=== PATIENT | male | born 1980 | race Caucasian/White ===

== ENCOUNTER 2023-01-24 20:30 | Emergency (ER) | payer SELFPAY ==
[2023-01-24 20:33] VITALS: BP 148/90; PULSE 89; RESP 14; TEMP 36.4; O2SAT 98
--- NOTE | 2023-01-24 21:24 | ED.GENADULT ---
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 denies any dysuria. Says actually when he voided it actually feels denies any back pain. Pain radiates to his suprapubic area. Denies any other symptoms. He has been eating drinking voiding stooling well without fever cough runny nose sore throat bleeding or bruising lumps or bumps or any other complaints. history of opioid abuse on Suboxone Related Data Home Medications Medication Instructions Recorded Confirmed buprenorphine 8 mg-naloxone 2 mg 1 tablet sublingual DIRECTED 01/24/23 01/24/23 sublingual tablet Allergies Allergy/AdvReac Type Severity Reaction Status Date / Time No Known Allergies Allergy Verified 01/24/23 20:45 [facility] Social History Social History Smoking status: Current every day smoker Exam Narrative: White male moderate distress antalgic gait. Lungs are clear heart is regular rate rhythm abdomen is soft nontender no hepatosplenomegaly or masses right testicle is tender cremaster reflex is negative bilaterally the right tender testicle looks to be in a normal lie there is more tenderness to the epididymis. No inguinal hernias bilaterally left testicle is normal. Penis looks normal. Course Vital Signs Vital signs: Vital Signs Temperature 36.4 C 01/24/23 20:33 Pulse Rate 89 01/24/23 20:33 Respiratory Rate 14 01/24/23 20:33 Blood Pressure 148/90 H 01/24/23 20:33 Pulse Oximetry 98 01/24/23 20:33 Oxygen Delivery Room Air 01/24/23 20:33 Temperature 36.4 C 01/24/23 20:33 Pulse Rate 89 01/24/23 20:33 Respiratory Rate 14 01/24/23 20:33 Blood Pressure 148/90 H 01/24/23 20:33 Pulse Oximetry 98 01/24/23 20:33 Oxygen Delivery Room Air 01/24/23 20:33 Transfer Transfered to: [place] Transfer rationale: no ultrasound available here so must go to other facility to rule torsion of the testes Accepting physician: accepted by physician administrative assistant coordinator dAam Coronel Transfer comments: via ground ambulance Medical Decision Making MDM Narrative Medical decision making narrative: IV was started he is given Toradol 30 mg IV. [facility] was called spoke with Adam Coronel physician administrative assistant coordinator who accepted patient in transfer. To go by ground ambulance Differential Diagnosis Differential Diagnosis: torsed testicle epididymitis orchitis hernia kidney stone urinary tract infection pyelonephritis Medical Records Medical records reviewed: Yes I reviewed the external patient's medical records. Vital Signs Vital Signs: Vital Signs Temperature 36.4 C 01/24/23 20:33 Pulse Rate 89 01/24/23 20:33 Respiratory Rate 14 01/24/23 20:33 Blood Pressure 148/90 H 01/24/23 20:33 Pulse Oximetry 98 01/24/23 20:33 Oxygen Delivery Room Air 01/24/23 20:33 Temperature 36.4 C 01/24/23 20:33 Pulse Rate 89 01/24/23 20:33 Respiratory Rate 14 01/24/23 20:33 Blood Pressure 148/90 H 01/24/23 20:33 Pulse Oximetry 98 01/24/23 20:33 Oxygen Delivery Room Air 01/24/23 20:33 Discharge Plan Discharge Clinical Impression: Acute orchitis Patient Disposition: Acute Care Hospital Condition: Stable Additional Instructions: transferred via ground ambulance to [facility] in [facility] Prescriptions: No Action buprenorphine-naloxone 8-2 mg tablet, sublingual 1 tablet SUBLINGUAL DIRECTED Follow-up/Referrals: UNKNOWN,DOCTOR [Primary Care Provider] - Time of Disposition: 21:50
[2023-01-24] MEDS: SODIUM CHLORIDE 0.9% IV 1,000 ML 150 ML IV CONT (21:41)
[2023-01-24] MEDS: KETOROLAC 30 MG/ML VIAL (*BKC) IV PUSH (21:41)
--- NOTE | 2023-01-24 21:59 | PC.NURSE ---
After giving RN to RN report and starting transfer process, pt states that he wants to go via POV. Updated ERP and accepting facility. Jasson requests pt leave [facility] to receive ultrasound. RN relays information to pt who states he will make it in time.
== END 2023-01-24 22:12 | disposition short-term general hospital (02) ==
PROVIDERS: Emergency Provider Emergency Medicine
DX: N45.2 Orchitis (principal); F17.200 Nicotine dependence, unspecified, uncomplicated
CPT/HCPCS: 96374; 99284; J1885; J7030

== ENCOUNTER 2023-01-24 22:42 | Emergency (ER) | payer SELFPAY ==
--- NOTE | ~2023-01-24 | US_ITS ---
EXAMINATION: US scrotum doppler DATE: 01/24/2023 23:43 INDICATION: Right testicular pain TECHNIQUE: Testicular sonogram utilizing grayscale and Doppler COMPARISON: None. FINDINGS: The right testis measures 4.8 x 2.4 x 2.9 cm. The left testis measures 4.6 x 2.7 x 3.1 cm. Symmetric normal grayscale appearance to both testes. There is normal vascular flow to both testes. The right e pididymis is normal with normal vascular flow. 3 mm anechoic cyst at the head of the left epididymis. The left epididymis is otherwise normal with normal vascular flow. There is no varicocele or hydroce le. IMPRESSION: 1. 3 mm left epididymal head cyst. Otherwise unremarkable scrotal ultrasound. Reviewed, dictated and finalized at location [facility]. T [facility]UNDR[facility] ATTEND[facility]
--- NOTE | ~2023-01-24 | CT_ITS ---
EXAMINATION: CT abdomen pelvis wo con DATE: 01/25/2023 05:19 INDICATION: Renal stones presenting with right testicular pain and swelling which improves with urina tion. TECHNIQUE: Computed tomography (CT) of the abdomen and pelvis was performed without intravenous contr ast. Automated exposure control and iterative reconstruction technique were employed. The dose-length product was 783.95 mGy-cm. COMPARISON: None FINDINGS: Lung bases are clear. Heart size is normal. No pericardial or pleural effusion. Liver, gallbladder, s pleen, pancreas and bilateral adrenal glands are normal. Kidneys and ureters are normal with no uroli thiasis, hydroureteronephrosis or perinephric/ureteral stranding. Bladder is normal. Postoperative ch fernando of prior appendectomy with suture line along the tip of the cecum. Bowels are otherwise unremark able. Mild asymmetric enlargement and decreased attenuation of the right seminal vesicle relative to the left which could be normal but raises possibility of seminal vesiculitis. No free intraperitoneal gas or fluid. No pathologically enlarged abdominal or pelvic lymphadenopathy. Mild to moderate lumba r spondylosis with 8 mm retrolisthesis L5 on S1. IMPRESSION: 1. No urolithiasis. 2. Asymmetric enlargement and decreased attenuation of the right seminal vesicle which could be sapna l but given the provided clinical history suggests possibility of edema in the setting of a seminal v esiculitis. Reviewed, dictated and finalized at location [facility]. [facility] IMPRESSION: 1. No urolithiasis. 2. Asymmetric enlargement and decreased attenuation of the right seminal vesicl e which could be normal but given the provided clinical history suggests possib ility of edema in the setting of a seminal vesiculitis.
[2023-01-24 22:44] VITALS: BP 131/83; PULSE 83; RESP 16; TEMP 36.2; O2SAT 100
[2023-01-25] VITALS (10 sets, daily range): BP systolic 130–145; BP diastolic 68–90; PULSE 72–88; RESP 16–18; TEMP 36.5; O2SAT 96–100
[2023-01-25] MEDS: ACETAMINOPHEN 500 MG TABLET 1000 MG PO (05:13)
--- NOTE | 2023-01-25 05:22 | ED.GENADULT ---
HPI - General Adult General Chief complaint: Urogenital-Male Stated complaint: possible testicular torsion Time Seen by Provider: 01/25/23 03:15 History of Present Illness HPI narrative: This is a 43-year-old male sent from [facility] for possible torsion. Patient states that he has been having flank abdominal and testicle pain for the last 3 days. Started out in his flanks and then radiated to his lower abdomen and groin. He states that the pain comes and goes. He has never had pain like this before. It is relieved by urination. There are no exacerbating factors. He did note that he had very dark urine but he denies hematuria. No history of kidney stones. Patient is sexually active with 1 partner and has no concern for STDs. Patient denies fever, chills, nausea vomiting diarrhea, chest pain difficulty breathing. Related Data Home Medications Medication Instructions Recorded Confirmed buprenorphine 8 mg-naloxone 2 mg 1 tablet sublingual DIRECTED 01/24/23 01/24/23 sublingual tablet Allergies Allergy/AdvReac Type Severity Reaction Status Date / Time No Known Allergies Allergy Verified 01/24/23 20:45 [facility] Social History Social History Smoking status: Current every day smoker Exam Narrative: APPEARANCE: No apparent distress. Head: atraumatic. EYES: EOMI, NOSE: Atraumatic NECK: Trachea midline RESPIRATORY: No increased rate of breathing CARDIOVASCULAR: RRR, ABDOMINAL: Non-distended, soft no guarding or rebound, no CVA tenderness, Genital exam: tenderness to palpation on the posterior aspect of the right testicle. Normal lie. No overlying skin changes or swelling. MUSCULOSKELETAl: No obvious deformities NEURO: Alert. Moving 4/4 extremities SKIN:: Warm, dry. Normal color PSYCHIATRIC: Normal affect Course Vital Signs Vital signs: Vital Signs Temperature 97.2 F L 01/24/23 22:44 Pulse Rate 83 01/24/23 22:44 Respiratory Rate 16 01/24/23 22:44 Blood Pressure 131/83 01/24/23 22:44 Pulse Oximetry 100 01/24/23 22:44 Oxygen Delivery Room Air 01/24/23 22:44 Temperature 97.2 F L 01/24/23 22:44 Pulse Rate 88 01/25/23 01:25 Respiratory Rate 16 01/25/23 01:25 Blood Pressure 145/75 H 01/25/23 03:16 Pulse Oximetry 96 01/25/23 03:37 Oxygen Delivery Room Air 01/24/23 22:44 Medical Decision Making [facility] Narrative Medical decision making narrative: -Presentation: 43-year-old male presenting with flank pain and testicle pain. Testicular ultrasound has been ordered. Given his flank pain a CT abdomen pelvis is ordered to evaluate for kidney stone. Basic lab work and urinalysis will be obtained. Patient denies any chance of STDs and has declined testing. 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 Urinalysis was not indicative infection. Lab work was within normal limits. CT abdomen pelvis was interpreted as: 1. No urolithiasis. 2. Asymmetric enlargement and decreased attenuation of the right seminal vesicle which could be normal but given the provided clinical history suggests possibility of edema in the setting of a seminal vesiculitis. Dx tests considered but not ordered: None -Procedures: none -Interventions: ceftriaxone 500 mg IV, 500 mg levofloxacin PO -Shared decision making / Disposition: Given the CT findings I re-interviewed the patient and the patient admits to severe pain on ejaculation. Case was discussed with Dr. Tubbs (Urology.) He agrees with ceftriaxone and a 10 day course of levofloxacin. Rec
[2023-01-25 05:55] LABS: Basophils Percent Auto 0.5 % (0.2-1.2); Eosinophils Absolute Auto 0.2 K/mm3 (0-0.3); Eosinophils Percent Auto 4.2 % (0-4.4); Hematocrit 40.4 % (42.0-52.0); Hemoglobin 13.2 g/dL (14.0-18.0); Immature Granulocyte Absolute 0.01 K/mm3 (0.00-0.031); Immature Granulocyte Percent A 0.2 % (0-0.5); Lymphocytes Absolute Auto 2.16 K/mm3 (0.9-3.2); Lymphocytes Percent Auto 50.3 % (18.3-44.2); Mean Corpuscular HGB Conc 32.7 g/dl (32-36); Mean Corpuscular Volume 85.8 fl (80-100); Mean Platelet Volume 9.1 fl (7.4-10.4); Monocytes Absolute Auto 0.4 K/mm3 (0.1-0.6); Monocytes Percent Auto 8.2 % (2.6-8.5); Neutrophils Absolute Auto 1.6 K/mm3 (1.3-6.7); Neutrophils Percent Auto 36.6 % (45.5-73.1); Platelet Count Result 242 k/mm3 (150-375); Red Blood Count 4.71 M/mm3 (4.6-6.20); Red Cell Distribution Width 15.1 % (11.5-14.5); White Blood Count 4.3 K/mm3 (4.5-10.0)
[2023-01-25 06:03] LABS: Appearance Urine Turbid (Clear); Bacteria Urine None Seen /hpf; Bilirubin Urine Negative (Negative); Blood Urine Negative (Negative); Color Urine Dark Yellow (Yellow); Glucose Urine UA Negative (Negative); Ketones Urine Negative (Negative); Leukocyte Esterase Ur Negative LEU/UL (Negative); Nitrate Urine Negative (Negative); Non Pathogenic Casts 0-2; Protein Urine Trace mg/dL (Negative); RBC Urine 0-2 /hpf (0-2); Specific Grav Ur 1.027 (1.001-1.035); Squamous Epithelial Cell Urine None seen /hpf (Few); WBC Urine 0-5 /hpf; pH Urine 7.5 (5.0-9.0)
[2023-01-25 06:05] LABS: Anion Gap 5 mmol/L (8-16); Blood Urea Nitrogen 12 mg/dL (9-20); Carbon Dioxide 29 mmol/L (22-30); Chloride 109 mmol/L (98-107); Estimated CRCL calculation 94 ml/min; Estimated Glomerular Filt Rate > 60; Glucose 87 mg/dL (65-110); Potassium 4.1 mmol/L (3.4-5.0); Sodium 143 mmol/L (137-145)
[2023-01-25 06:15] LABS: Add Urine Microscopic? YES
[2023-01-25] MEDS: cefTRIAXone 1 GM VIAL 0.5 GM XX (06:58)
[2023-01-25] MEDS: levoFLOXacin 500 MG TABLET PO (06:58)
[2023-01-25] MEDS: LIDOCAINE HCL 1% LOCAL INJ 20 ML VIAL (06:59)
== END 2023-01-25 07:44 | disposition home or self-care (01) ==
PROVIDERS: Physician Assistant; Emergency Provider Emergency Medicine
DX: N45.1 Epididymitis (principal); F17.200 Nicotine dependence, unspecified, uncomplicated
CPT/HCPCS: 36415; 74176; 76870; 80048; 81001; 85025; 93976; 96372; 99284; A9270; J0696

== ENCOUNTER 2023-07-11 18:04 | Emergency (ER) | payer SELFPAY ==
[2023-07-11 18:04] VITALS: BP 135/82; PULSE 84; RESP 18; TEMP 37.1; O2SAT 97
--- NOTE | 2023-07-11 18:15 | ED.GENADULT ---
HPI - General Adult General Chief complaint: Skin/Abscess/Foreign Body Stated complaint: rash Time Seen by Provider: 07/11/23 18:14 History of Present Illness HPI narrative: 43yo man presents with recurring itchy red bumps all over the arms and legs. Last onset one week ago, responds decently well to topical benadryl cream. No fevers, chills, bruising. No nausea, dyspnea, wheezing, or skin swelling. Pt has been scratching and saw some black material come out, so wanted to be sure it wasn't a parasite. Related Data Home Medications Medication Instructions Recorded Confirmed buprenorphine 8 mg-naloxone 2 mg 1 tablet sublingual DIRECTED 01/24/23 07/11/23 sublingual tablet Allergies Allergy/AdvReac Type Severity Reaction Status Date / Time No Known Allergies Allergy Verified 07/11/23 18:14 Review of Systems Review of Systems: All systems reviewed & are unremarkable except as noted in HPI and below Constitutional: Constitutional: Denies fever(s) ENT: Denies dysphagia Cardiovascular: Cardiovascular: Denies chest pain Respiratory: Respiratory: Denies dyspnea PMFSH Social History Social History Smoking status: Current every day smoker Exam Const: General: healthy appearing Nutritional Appearance: well nourished Eyes: Conjunctivae: conjunctivae normal Resp: Effort & Inspection: normal respiratory effort and not labored Cardio: Rate: regular rate GI: Inspection: non-distended Skin: General skin exam: normal color, no jaundice and no pallor Other: Sparsely scattered excoriated red papules, non-pustular, non-umbilicated, across the arms and legs. Head and neck are spared. No macules. Extrem: General: no clubbing, cyanosis or edema Medical Decision Making MDM Narrative Medical decision making narrative: evenly distributed red papules DDx likely acute immunologic urticaria or papular urticaria related to exposure to plant matter, insects, or other environmental allergen. Clinical exam not consistent with herpesvirus, contact dermatitis, direct insect bites (flea, scabies, tick, or other arthropod), vasculitis, petechiae. Will trial anti-inflammatories and anti-histamines. Discharge Plan Discharge Clinical Impression: Papular urticaria Patient Disposition: Home, Self-Care Condition: Stable Additional Instructions: Your rash appears to be an inflammatory reaction, given the symmetric and even distribution, which means it is not a parasite or insect. It also does not look like any vasculitis or auto-immune disorder. It appears to be a limited reaction and only requires mild treatment. Take the prescribed medication as directed for the full course to get relief from your symptoms. Follow-up with your regular doctor if symptoms are not improving. Prescriptions: New dexamethasone 4 mg tablet 4 mg PO BID 5 Days Qty: 10 0RF hydroxyzine HCl 25 mg tablet 25 mg PO Q6H PRN (Reason: itching) Qty: 20 0RF No Action buprenorphine-naloxone 8-2 mg tablet, sublingual 1 tablet SUBLINGUAL DIRECTED Follow-up/Referrals: UNKNOWN,DOCTOR [Primary Care Provider] - Time of Disposition: 18:28
== END 2023-07-11 18:30 | disposition home or self-care (01) ==
PROVIDERS: Emergency Provider Emergency Medicine
DX: L50.8 Other urticaria (principal); F17.200 Nicotine dependence, unspecified, uncomplicated
CPT/HCPCS: 99283

== ENCOUNTER 2024-07-22 12:03 | Emergency (ER) | payer SELFPAY ==
--- NOTE | ~2024-07-22 | XR_ITS ---
Clinical Indication: Cough PA and lateral views of the chest: Comparison: 08/16/2016 Findings: The lungs are clear, without evidence of focal consolidation or pleural effusion. Cardiome diastinal silhouette is within normal limits. Bones and soft tissues are unremarkable. Impression: Normal chest. Reviewed, dictated and finalized at [facility]. Impression: Normal chest.
[2024-07-22 12:04] VITALS: BP 146/96; PULSE 92; RESP 18; TEMP 36.7; O2SAT 99
[2024-07-22 12:15] VITALS: O2SAT 99
--- NOTE | 2024-07-22 12:17 | ED.URI ---
HPI - URI/Sore Throat General Chief Complaint: Upper Respiratory Infection Stated Complaint: fever Time Seen by Provider: 07/22/24 12:17 Source: patient Mode of arrival: ambulatory Limitations: no limitations History of Present Illness HPI Narrative: patient is a 44-year-old male with cough congestion and discolored phlegm for the past week. He is having shortness of breath after long periods of walking. He also has some aches and pains to include his neck. No neurological changes. He has been having hot and cold fever with chills. MD elicited complaint: fever, cough and nasal congestion Onset (ago): week(s) (1) Consistency: constant Severity: moderate Pain scale (0-10): 4 Description of mucous: clear, yellow and green Able to tolerate fluids by mouth: Yes Exacerbating factors: nothing Relieving factors: nothing Associated symptoms: fever, chills, myalgias, stiff neck, cough and shortness of breath Treatments prior to arrival: acetaminophen and ibuprofen Related Data Home Medications Medication Instructions Recorded Confirmed buprenorphine 8 mg-naloxone 2 mg 1 tablet sublingual DIRECTED 01/24/23 07/22/24 sublingual tablet Allergies Allergy/AdvReac Type Severity Reaction Status Date / Time No Known Allergies Allergy Verified 07/22/24 12:11 Review of Systems Review of Systems: All systems reviewed & are unremarkable except as noted in HPI and below Constitutional: Constitutional: Reports no additional constitutional complaints Eyes: Eyes: Reports no additional eye complaints ENT: Reports system reviewed and no additional complaints, except as documented Cardiovascular: Cardiovascular: Reports no additional cardiovascular complaints Respiratory: Respiratory: Reports no additional respiratory complaints Gastrointestinal: Gastrointestinal: Reports no additional gastrointestinal complaints Genitourinary: Genitourinary: Reports no additional male genitourinary complaints Musculoskeletal: Musculoskeletal: Reports no additional musculoskeletal complaints Integumentary/Breasts: Skin/Breast: Reports system reviewed and no additional complaints, except as docu Neurologic: Reports system reviewed and no additional complaints, except as documented Psychiatric: Psychiatric: Reports no additional psychiatric complaints Endocrine: Endocrine: Reports no additional endocrine complaints Hematologic/Lymphatic: Hematologic/Lymphatic: Reports no additional hematologic/lymphatic complaints Allergic/Immunologic: Allergic/Immunologic: Reports no additional allergic/immunologic complaints PMFSH Social History Social History Smoking status: Current every day smoker Exam Const: General: ill appearing Nutritional Appearance: well nourished Orientation/consciousness: patient oriented x3 HENMT: Head: normal to inspection Ears: external ears normal Face/Nose/Sinus: Normal external nose present Eyes: Conjunctivae: conjunctivae normal Pupils: Equal, round and reactive pupils present EOM: EOMs intact bilaterally Neck: Neck: normal visual inspection Chest: Chest palpation & inspection: normal inspection of the chest Resp: Effort & Inspection: normal respiratory effort and not labored Auscultation: clear to auscultation bilaterally and crackles on the left at the base Cardio: Rate: regular rate Rhythm: regular rhythm Heart sounds: no murmurs GI: Inspection: non-distended GI Palp: Yes Soft to palpation and No Tenderness to palpation present (GI) Auscultation: normal bowel sounds : General: Yes bladder normal to palpation Back/Spine/Pelvis: Back: no CVA tenderness Skin: General skin exam: normal color Rashes: no rashes Wounds: no wounds Neuro: General: patient oriented x3 Cranial nerves: Yes Nystagmus not present Speech: normal speech Extrem: General: normal to inspection Psych: Mental Status: mental status grossly normal Affect: nor
--- NOTE | 2024-07-22 12:19 | PC.NURSE ---
covid test sent to lab
[2024-07-22 12:51] LABS: SARS-CoV-2 RNA PCR Positive (Negative)
[2024-07-22 12:52] LABS: Influenza A QL RT-PCR Negative (Negative); Influenza B QL RT-PCR Negative (Negative); RSV RNA, RT-PCR Negative (Negative)
[2024-07-22 12:55] LABS: Basophils Absolute Auto 0.01 K/mm3 (0.00-0.10); Basophils Percent Auto 0.2 % (0.0-1.0); Eosinophils Absolute Auto 0.07 K/mm3 (0.02-0.50); Eosinophils Percent Auto 1.3 % (1.0-6.0); Hematocrit 47.4 % (40.0-54.0); Hemoglobin 16.1 g/dL (14.0-18.0); Immature Granulocyte Absolute 0.01 K/mm3 (0.00-0.00); Immature Granulocyte Percent A 0.2 % (0.0-0.0); Lymphocytes Absolute Auto 1.67 K/mm3 (1.10-4.50); Lymphocytes Percent Auto 31.8 % (18.0-42.0); Mean Corpuscular Volume 88.3 fL (78.0-102.0); Mean Platelet Volume 9.5 fl (8.7-11.0); Monocytes Absolute Auto 0.45 K/mm3 (0.10-0.90); Monocytes Percent Auto 8.6 % (2.0-11.0); Neutrophils Absolute Auto 3.04 K/mm3 (1.70-7.20); Neutrophils Percent Auto 57.9 % (50.0-70.0); Platelet Count Result 148 K/mm3 (150-420); Red Blood Count 5.37 M/mm3 (4.70-6.10); Red Cell Distribution Width 11.9 % (11.6-14.4); White Blood Count 5.3 K/mm3 (4.8-10.8)
[2024-07-22 13:09] LABS: Alanine Aminotransferase 108 U/L (16-63); Alkaline Phosphatase 82 U/L (46-116); Anion Gap 8 mmol/L (4-12); Aspartate Amino Transferase 58 U/L (15-37); Bilirubin,Total 0.4 mg/dL (0.00-1.00); Blood Urea Nitrogen 7 mg/dL (7-18); Calcium 8.8 mg/dL (8.5-10.1); Carbon Dioxide 31 mmol/L (21-32); Chloride 98 mmol/L (98-108); Estimated CRCL calculation 119 ml/min; Estimated Glomerular Filt Rate > 60; Glucose 100 mg/dL (70-99); Osmolality Calculated 282 mOsm/kg (285-295); Potassium 4.3 mmol/L (3.5-5.1); Sodium 137 mmol/L (136-145); Total Protein 7.9 g/dL (6.4-8.2)
[2024-07-22 13:33] VITALS: BP 133/90; PULSE 92; RESP 16; TEMP 36.8; O2SAT 97
== END 2024-07-22 13:33 | disposition home or self-care (01) ==
PROVIDERS: Emergency Provider Emergency Medicine
DX: U07.1 COVID-19 (principal); F17.200 Nicotine dependence, unspecified, uncomplicated; Z79.899 Other long term (current) drug therapy
CPT/HCPCS: 36415; 71046; 80053; 83605; 85025; 87637; 99283

== ENCOUNTER 2024-11-21 14:28 | Emergency (ER) | payer SELFPAY ==
[2024-11-21 14:33] VITALS: BP 135/83; PULSE 85; RESP 20; TEMP 36.7; O2SAT 98
--- NOTE | 2024-11-21 14:40 | ED_ITS ---
HPI - Back Pain/Injury General Chief Complaint: Back Pain/Injury Stated Complaint: lower back pain Time Seen by Provider: 11/21/24 14:40 Source: patient Mode of arrival: ambulatory Limitations: no limitations History of Present Illness HPI Narrative: Patient is a 44-year-old male with a midline back pain without injury. 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 He did not want an x-ray at this time as there was no injury further and he knows this happens a couple times a year. He was hoping for medical management. he relates this back pain to long period of sitting recently. MD elicited complaint: back pain ( lumbar spine) and back injury ( Years ago) Pertinent past history: prior back pain ( prior trauma to the lumbar spine years ago; recurrent lumbar pain twice a year typically after long sitting time frame) Onset (ago): day(s) (3) Timing: constant Severity: moderate Pain scale (0-10): 7 Similar Symptoms Previously: Yes Quality: sharp and spasming Location: lumbar spine Radiation: none Exacerbating factors: movement and walking Relieving factors: immobilization and sitting upright Context: trauma ( Years ago in a coal mine accident) Associated symptoms: denies other symptoms Work related injury: No Related Data Allergies Allergy/AdvReac Type Severity Reaction Status Date / Time No Known Allergies Allergy Verified 11/21/24 14:44 Review of Systems Review of Systems: All systems reviewed & are unremarkable except as noted in HPI and below Constitutional: Constitutional: Reports no additional constitutional complaints Eyes: Eyes: Reports no additional eye complaints ENT: Reports system reviewed and no additional complaints, except as documented Cardiovascular: Cardiovascular: Reports no additional cardiovascular complaints Respiratory: Respiratory: Reports no additional respiratory complaints Gastrointestinal: Gastrointestinal: Reports no additional gastrointestinal complaints Genitourinary: Genitourinary: Reports no additional male genitourinary complaints Musculoskeletal: Musculoskeletal: Reports no additional musculoskeletal complaints Integumentary/Breasts: Skin/Breast: Reports system reviewed and no additional complaints, except as docu Neurologic: Reports system reviewed and no additional complaints, except as documented Psychiatric: Psychiatric: Reports no additional psychiatric complaints Endocrine: Endocrine: Reports no additional endocrine complaints Hematologic/Lymphatic: Hematologic/Lymphatic: Reports no additional hematologic/lymphatic complaints Allergic/Immunologic: Allergic/Immunologic: Reports no additional allergic/immunologic complaints [facility] Social History Social History Smoking status: Current every day smoker Exam 2 Const: General: healthy appearing Nutritional Appearance: well nourished Orientation/consciousness: patient oriented x3 Limitations: no limitations HENMT: Head: normal to inspection Ears: external ears normal Face/Nose/Sinus: Normal external nose present Eyes: Conjunctivae: conjunctivae normal Pupils: Equal, round and reactive pupils present EOM: EOMs intact bilaterally Neck: Neck: normal visual inspection Chest: Chest palpation & inspection: normal inspection of the chest Resp: Effort & Inspection: normal respiratory effort and not labored Auscultation: clear to auscultation bilaterally and no crackles Cardio: Rate: regular rate Rhythm: regular rhythm Heart sounds: no murmurs GI: Inspection: non-distended GI Palp: Yes Soft to palpation and No Tenderness to palpation present (GI) Auscultation: normal bowel sounds : General: Yes bladder normal to palpation Back/Spine/Pelvis: Back: no CVA tenderness Other: lumbar spine tenderness midline around L3 and L4 without sciatica (no loss of urine, no loss of bowel and no groin anesthesia) Skin: General skin exam: normal color Rashes: no rashes Wounds: no wounds Neuro: General: patient oriented x3 Cranial nerves: Yes Nystagmus not present Speech: normal speech Gait exam (Neuro): Normal gait present Extrem: General: normal to inspection Psych: Mental Status: mental status grossly normal Affect: normal affect Attitude: cooperative Course Vital Signs Vital signs: Vital Signs Temperature 36.7 C 11/21/24 14:33 Pulse Rate 85 11/21/24 14:33 Respiratory Rate 20 11/21/24 14:33 Blood Pressure 135/83 11/21/24 14:33 Pulse Oximetry 98 11/21/24 14:33 Oxygen Delivery Room Air 11/21/24 14:33 Temperature 36.7 C 11/21/24 14:33 Pulse Rate 85 11/21/24 14:33 Respiratory Rate 20 11/21/24 14:33 Blood Pressure 135/83 11/21/24 14:33 Pulse Oximetry 98 11/21/24 14:33 Oxygen Delivery Room Air 11/21/24 14:33 MDM - Back Pain/Injury MDM Narrative Medical decision making narrative: patient is a 44-year-old male with lumbar spine pain which occurs a few times a year especially after sitting. He did not want x-ray at this time. We will do medical management with Solu-Medrol IM and Norflex IM. Further I will send [place], Flexeril and Medrol Dosepak to the pharmacy. This is lumbago. No sciatica. straight leg test was negative. Discharge Plan Discharge Clinical Impression: Lumbar radiculopathy Lumbago Qualifiers: Chronicity: acute Back pain laterality: midline Sciatica presence: without sciatica Qualified Code(s): M54.50 - Low back pain, unspecified Patient Disposition: Home, Self-Care Condition: Stable Instructions: Lumbar Radiculopathy (ED) Patient Language: Citizen Of [place] Prescriptions: New methylprednisolone [Medrol (Ferdinand)] 4 mg tablets,dose pack See Rx Instructions .ROUTE .COMPLEX Qty: 21 0RF Rx Instructions: orally per package directions cyclobenzaprine 10 mg tablet 10 mg PO TID PRN (Reason: muscle spasm) Qty: 20 0RF hydrocodone-acetaminophen 10-325 mg tablet 1 tablet PO Q8H PRN (Reason: pain) Qty: 15 0RF hydrocodone-acetaminophen 10-325 mg tablet 1 tablet PO Q8H PRN (Reason: pain) Qty: 15 0RF cyclobenzaprine 10 mg tablet 10 mg PO TID PRN (Reason: muscle spasm) Qty: 20 0RF methylprednisolone [Medrol (Ferdinand)] 4 mg tablets,dose pack See Rx Instructions .ROUTE .COMPLEX Qty: 21 0RF Rx Instructions: orally per package directions No Action dexamethasone 4 mg tablet 4 mg PO BID 5 Days Qty: 10 0RF hydroxyzine HCl 25 mg tablet 25 mg PO Q6H PRN (Reason: itching) Qty: 20 0RF azithromycin 250 mg tablet See Rx Instructions .ROUTE .COMPLEX Qty: 6 0RF Rx Instructions: For 250 mg dose pack: take 500 mg today (day 1), then 250 mg for 4 days (days 2-5) Follow-up/Referrals: UNKNOWN,DOCTOR [Primary Care Provider] - Stand Alone Forms: Work/School Release IP Time of Disposition: 15:58
[2024-11-21 15:22] LABS: Add Urine Microscopic? NO; Appearance Urine Clear (Clear); Bilirubin Urine Negative (Negative); Blood Urine Negative (Negative); Color Urine Light Yellow (Yellow); Glucose Urine UA Negative (Negative); Ketones Urine Negative (Negative); Leukocyte Esterase Ur Negative (Negative); Nitrate Urine Negative (Negative); Protein Urine Negative (Negative); Urobilinogen Urine 0.2 mg/dL (0.2-1.0)
--- NOTE | 2024-11-21 15:37 | PC.NURSE ---
PT IS AWAITING ERP EVALUATION AT THIS TIME. WILL CONTINUE TO MONITOR. PT AMBULATORY TO RR WITH STEADY GAIT. WILL CONTINUE TO MONITOR.
[2024-11-21] MEDS: methylPREDNISolone SOD SUCC 125 MG VIAL IM (15:52)
[2024-11-21] MEDS: ORPHENADRINE CITRATE 30 MG/ML 2 ML VIAL 60 MG IM (15:52)
[2024-11-21 16:01] VITALS: BP 140/91; PULSE 90; RESP 18; TEMP 36.9; O2SAT 97
--- OUTSIDE RECORDS SUMMARY | 2024-11-28 11:39 | XMS_ITS | Encounter Summary ---
Author Organization [facility] Address [address] [facility]. 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
--- OUTSIDE RECORDS SUMMARY | 2024-11-28 11:39 | XMS_ITS | Encounter Summary ---
Author Organization [facility] Address [address] [facility] [place] [address] [place] [address] Care Team Providers Care Shell Plater Name Role Phone Unavailable Primary Care Provider Unavailabl e Encounter Details Date Type Department Care Team (Late st Contact Info) Description 04/22/2013 Abstract [facility] 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
--- OUTSIDE RECORDS SUMMARY | 2024-11-28 11:39 | XMS_ITS | Encounter Summary ---
Author Organization [facility] Address [address] [facility] 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 Gender Identity Not on file Sexual Orientation Not on file documented as of this encounter Last Filed Vital Signs Vital Sign Reading Time Taken Comments Blood Pressure 128/88 2014 9:44 AM CONFERENCE DIRECTOR Pulse 76 2014 9:44 AM CONFERENCE DIRECTOR Temperature - - Respiratory Rate - - Oxygen Saturation - - Inhaled Oxygen Concentration - - Weight 114.3 kg (252 lb) 2014 9:44 AM CONFERENCE DIRECTOR Height 182.9 cm (6') 2014 9:44 AM CONFERENCE DIRECTOR Body Mass Index 34.18 2014 9:44 AM CONFERENCE DIRECTOR documented in this encounter Progress Notes * Caro Rodriges MD - 2014 9:20 AM CST Chief Complaint Patient here for [facility] DOT physical. Reason For Visit Occupational Medicine Active Problems 1. Encounter for occupational health examination (V70.5) (Z02.89) Social History ?? Current every day smoker (305.1) (Z72.0) Current Meds 1. ZyrTEC Allergy CAPS; Therapy: (Recorded:23Jan2014) to Recorded Dispense: 0 Days ; #: Sufficient CAPS; Refill: 0; JAX = N; Record; Last Updated By: Meena Sullivan; 2014 9:45:02 AM Allergies 1. No Known Drug Allergies Recorded By: Meena Sullivan; 2014 9:45:02 AM Vitals Vital Signs [Data Includes: Current Encounter] Recorded by : Meena Sullivan at 23Jan2014 09:51AM Recorded by : Meena Sullivan at 23Jan2014 09:44AM Temperature 97.2 F Heart Rate 76 Respiration 16 Systolic 128, LUE, Sitting Diastolic 88, LUE, Sitting Height 6 ft Weight 252 lb BMI Calculated 34.18 BSA Calculated 2.35 Distance Acuity OD 20/20 Distance Acuity OS 20/30 Results/Data 1 WEEKS Results LS-URINALYSIS 23Jan2014 09:38AM Caro Rodriges Test Name Result Flag Reference Color YELLOW - Clarity CLEAR - Specific [place] 1.020 1.020-1.030 PH 7.0 5-7 Glucose. NEG - Protein NEG - Ketones NEG - Bilirubin NEG - Blood NEG - Urobilinogen NORMAL - Nitrites NEG - Leukocytes NEG Neg-Neg Assessment 1. Encounter for occupational health examination (V70.5) (Z02.89) Plan 1. LS-URINALYSIS Status: Resulted - Requires Verification Done: 23Jan2014 09:38AM Performed: [facility] Due: 02Feb2014; Ordered; For: Encounter for occupational health examination; Ordered By: Caro Rodriges cleared Signatures Electronically signed by : Caro Rodriges M.D.; 2014 10:26AM CONFERENCE DIRECTOR (Author) ERENCE DIRECTOR documented in this encounter Plan of Treatment Not on file documented as of this encounter Procedures Procedure Name Priority Date/Time Associated Diagnosis Comments URINALYSIS Routine 2014 9:38 AM CONFERENCE DIRECTOR documented in this encounter Results * URINALYSIS (2014 9:38 AM CONFERENCE DIRECTOR) COLOR (U) YELLOW [facility] T O EPIC CONVERSION TRANSPARENCY CLEAR [facility] P TO EPIC CONVERSION SPECIFIC GRAVITY (U) 1.020 1.020 - 1.030 [facility] TO EPIC CONVERSION PH ARTERIAL 7.0 5 - 7 [facility] TO EPIC CONVERSION GLUCOSE NEG [facility] T O EPIC CONVERSION PROTEIN (U) NEG [facility] TO EPIC CONVERSION KETONES S/P/B NEG [facility] UP TO EPIC CONVERSION BILIRUBIN (U) NEG [facility] UP TO EPIC CONVERSION BLOOD (U) NEG [facility] T O EPIC CONVERSION UROBILINOGEN NORMAL [facility] P TO EPIC CONVERSION NITRITES NEG [facility] T O EPIC CONVERSION LEUKOCYTES (U) NEG Neg-Neg [facility] OUP TO EPIC CONVERSION 2014 9:38 AM CONFERENCE DIRECTOR 2014 9:38 AM CONFERENCE DIRECTOR Narrative [facility] TO EPIC CONVERSION - 2014 9:40 AM CONFERENCE DIRECTOR Result Communication: No patient communication needed at this time Caro Rodriges MD URINE ORDERABLES Final Result [facility] TO EPIC CONVERSION documented in this encounter Visit Diagnoses Not on filedocumented in this encounter
--- OUTSIDE RECORDS SUMMARY | 2024-11-28 11:39 | XMS_ITS | Encounter Summary ---
Author Organization [facility] Address [address] [facility]. 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
--- OUTSIDE RECORDS SUMMARY | 2024-11-28 11:39 | XMS_ITS | Encounter Summary ---
Author Organization [facility] Address [facility] 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
--- OUTSIDE RECORDS SUMMARY | 2024-11-28 11:39 | XMS_ITS | Encounter Summary ---
Author Organization [facility] Address [facility] [facility]. 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 No / Unsure 07/17/2020 9:20 AM CDT documented as of this encounter Plan of Treatment Not on file documented as of this encounter Visit Diagnoses Not on filedocumented in this encounter Care Teams Toll Bridge Operator Relationship Specialty Start Date End Date None, ProviderMD PCP - General 07/17/20 documented as of this encounter
--- OUTSIDE RECORDS SUMMARY | 2024-11-28 11:39 | XMS_ITS | Encounter Summary ---
Author Organization [facility] Address [facility] [facility] [place] [address] [place] [address] Care Team Providers Care Strategy Manager Name Role Phone None, Provider Primary Care Provider Unavaila ble Encounter Details Date Type Department Care Team (Latest Contact Info) Description 07/17/2020 9:15 AM CDT - 07/17/2020 11:59 PM CDT Hospital Encounter [facility] [address] [place] [address] Jeremias Mckeon MD [address] [place] [address] [place] [phone] Discharge Disposition: Home or Self Care (Routine Discharge) Social History Tobacco Use Types Packs/Day Years Used Date Smoking Tobacco: Never Assessed Sex and Gender Information Value Date Recorded Sex Assigned at Not on file 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 Gender Identity Not on file Sexual Orientation [...] Procedure Name Priority Date/Time Associated Diagnosis Comments MISCELLANEOUS LAB TEST Routine 0 9:42 AM CDT Tick Bite Rash LYME DISEASE ANTIBODY Routine 07/17/2020 9:42 AM CDT Tick Bite Rash CBC W/DIFF AUTOMATED Routine 07/17/2020 9:42 AM CDT Tick Bite Rash documented in this encounter Results * MISCELLANEOUS LAB TEST (07/17/2020 9:42 AM CDT) TEST NAME: [id number] RICKETTSIA AB PANEL WITH REFLEX TO TITERS 07/17/2020 9:45 AM CDT [facility] SPECIMEN TYPE SERUM 07/17/2020 9:45 AM CDT [facility] TEST RESULT: Flexitest 1 07/21/2020 2:37 PM CDT [facility] MARK LANGFORD Comment: Flexitest 1 RMSF IgG ? Not Detected Reference range: ??Not Detected RMSF IgG Antibodies ? Not indicated RMSF IgM ? Not Detected Reference range: ??Not Detected RMSF IgM Antibodies ? Not indicated R. typhi IgG ? Not Detected Reference range: ??Not Detected Typhus IgG Antibodies ? Not indicated R. typhi IgM ? Not Detected Reference range: ??Not Detected Typhus IgM Antibodies ? Not indicated Test Performed by Isaiah Arnett, [facility], [address] [place] [address] Bobby Rawls M.D., Ph.D., Director of Laboratories , [facility] [id number] 07/17/2020 9:42 AM CDT us Jeremias Mckeon MD LABORATORY Final Result [address]ar[address] , [facility] [place] [address], * LYME DISEASE ANTIBODY (07/17/2020 9:42 AM CDT) LYME IGG/IGM <0.90 <0.90 Index 07/20/2020 4:26 PM CDT [employer] KELVIN NIEVES Comment: Reference ranges: Index ? Interpretation ----- ? <0.90 ? Negative 0.90-1.09 ? Equivocal >1.09 ? Positive As recommended by the Food and Drug Administration (FDA), all samples with positive or equivocal results in a Borrelia burgdorferi antibody EIA (screening) will be tested using a blot method. Positive or equivocal screening test results should not be interpreted as truly positive until verified as such using a supplemental assay (e.g., B. burgdorferi blot). The screening test and/or blot for B. burgdorferi antibodies may be falsely negative in early stages of Lyme disease, including the period when erythema migrans is apparent. The Code of [place], Article 1 of Chapter 5 of Title 32.1, section 32.1-137.06, requires that the following language must be included on every Lyme disease test report issued by a [place] laboratory: Patients undergoing a Lyme disease test should be aware that Lyme disease tests vary and may produce results that are inaccurate. This means a patient may not be able to rely on a positive or negative result. Health care providers are encouraged to discuss Lyme disease test results with the patient for whom the test was ordered. COMMENT REPORT 07/20/2020 4:26 PM CDT [employer] KELVIN NIEVES Comment: Not indicated Test Performed by Isaiah Arnett, [facility] [place], [address] [place], [place] Bobby Rawls M.D., Ph.D., Director of Laboratories , [facility] [id number] 07/17/2020 9:42 AM CDT Jeremias Mckeon MD LABORATORY Final Result [facility] [address] [place] [address], [place] [phone] * CBC W/DIFF AUTOMATED (07/17/2020 9:42 AM CDT) WBC 9.3 4.5 - 10.8 x10'3/uL 07/17/2020 9:47 AM CDT [facility] RBC 4.94 4.50 - 6.10 x10'6/uL 07/17/2020 9:47 AM CDT [facility] HGB 15.1 13.0 - 18.0 G/DL 07/17/2020 9:47 AM CDT [facility] HCT 44.1 37.0 - 52.0 % 07/17/2020 9:47 AM CDT [facility] MCV 89.3 78.0 - 100.0 FL 07/17/2020 9:47 AM CDT [facility] MCH 30.6 27.0 - 31.0 PG 07/17/2020 9:47 AM CDT [facility] MCHC 34.2 33.0 - 36.0 G/DL 07/17/2020 9:47 AM CDT [facility] RDW 11.8 11.5 - 14.5 % 07/17/2020 9:47 AM CDT [facility] PLT 273 150 - 350 x10'3/uL 07/17/2020 9:47 AM CDT [facility] MPV 8.8 7.4 - 10.4 FL 07/17/2020 9:47 AM CDT [facility] DIFFERENTIAL COMMENT NORMAL REFERENCE RANGE NOT ESTABLISHED FOR THE PROPORTIONAL LEUKOCYTE DIFFERENTIAL. 07/17/2020 9:47 AM CDT [facility] SEG NEUTROPHILS 65.7 % 0 9:47 AM CDT [facility] LYMPHOCYTES 28.3 % 07/17/2020 9:47 AM CDT [facility] MONOCYTES 4.2 % 07/17/2020 9:47 AM CDT [facility] EOSINOPHILS 1.3 % 07/17/2020 9:47 AM CDT [facility] BASOPHILS 0.3 % 07/17/2020 9:47 AM CDT [facility] IMMATURE GRANS % 0.2 % 07/17/20 20 9:47 AM CDT [facility] NRBC 0.0 % 07/17/2020 9:47 AM CDT [facility] ABS. NEUTROPHILS 6.09 1.60 - 8.30 x10'3/uL 07/17/2020 9:47 AM CDT [facility] ABS. LYMPHOCYTES 2.63 0.80 - 4.70 x10'3/uL 07/17/2020 9:47 AM CDT [facility] ABS. MONOCYTES 0.39 0.00 - 1.50 x10'3/uL 07/17/2020 9:47 AM CDT [facility] ABS. EOSINOPHILS 0.12 0.00 - 0.40 x10'3/uL 07/17/2020 9:47 AM CDT [facility] ABS. BASOPHILS 0.03 0.00 - 0.20 x10'3/uL 07/17/2020 9:47 AM CDT [facility] ABS. IMMATURE GRANULOCYTES 0.02 0.00 - 0.03 x10'3/uL 07/17/2020 9:47 AM CDT [facility] ABS. NUCLEATED RBC'S 0.00 0.00 x10'3/uL 07/17/2020 9:47 AM CDT [facility] 07/17/2020 9:42 AM CDT Jeremias Mckeon MD LABORATORY Final Result [facility] [address] [place] [address], documented in this encounter Visit Diagnoses Diagnosis Tick bite Other, multiple, and unspecified sites, insect bite, nonvenomous, without mention of infection Rash Rash and other nonspecific skin eruption documented in this encounter Care Teams Strategy Manager Relationship Specialty Start Date End Date None, Provider, PCP - General 07/17/20 documented as of this encounter
--- OUTSIDE RECORDS SUMMARY | 2024-11-28 11:39 | XMS_ITS | Encounter Summary ---
Author Organization [facility] Address [facility] [facility]. 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
--- OUTSIDE RECORDS SUMMARY | 2024-11-28 11:39 | XMS_ITS | Encounter Summary ---
Author Organization [facility] Address [facility] [place] [address] [place] [address] Care Team Providers Care Spinner Box Name Role Phone Unavailable Primary Care Provider Unavailabl e Encounter Details Date Type Department Care Team (Late st Contact Info) Description 09/22/[address] 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
--- OUTSIDE RECORDS SUMMARY | 2024-11-28 11:39 | XMS_ITS | Encounter Summary ---
Author Organization [facility] Address [facility]6 [facility] 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 No / Unsure 07/17/2020 9:20 AM CDT documented as of this encounter Plan of Treatment Not on file documented as of this encounter Results * MISCELLANEOUS LAB TEST (07/17/2020 9:42 AM CDT) TEST NAME: [id number] RICKETTSIA AB PANEL WITH REFLEX TO TITERS 07/17/2020 9:45 AM CDT [facility] SPECIMEN TYPE SERUM 07/17/2020 9:45 AM CDT [facility] TEST RESULT: Flexitest 1 07/21/2020 2:37 PM CDT [employer] PATTIE LANGFORD Comment: Flexitest 1 RMSF IgG ? [...] Antibodies ? Not indicated Test Performed by Govind Arnett, [employer] Pattie [facility], [address] [place] [address] Bobby Rawls M.D., Ph.D., Director of Laboratories , [facility] [id number] 07/17/2020 9:42 AM CDT Jeremias Mckeon MD LABORATORY Final Result Performing Organization Address City/State/[facility] Co de Phone Number [employer] [facility] [address] [place] [phone], [facility] [address] [place] [address], * LYME DISEASE ANTIBODY (07/17/2020 9:42 AM CDT) LYME IGG/IGM <0.90 <0.90 Index 07/20/2020 4:26 PM CDT [employer] KELVIN NIEVES Comment: Reference ranges: Index ? [...] Lyme disease test report issued by a [place] laboratory: Patients undergoing a Lyme disease test [...] ordered. COMMENT REPORT 07/20/2020 4:26 PM CDT [employer] KELVIN NIEVES Comment: Not indicated Test Performed by Govind Arnett, [employer] [facility] [place], [address] [place] [address] Bobby Rawls M.D., Ph.D., Director of Laboratories , [facility] [id number] 07/17/2020 9:42 AM CDT Jeremias Mckeon MD LABORATORY Final Result [employer] ROBBINGOVIND [address] [place] [phone], * CBC W/DIFF AUTOMATED (07/17/2020 9:42 AM CDT) WBC 9.3 4.5 - 10.8 x10'3/uL 07/17/2020 9:47 AM CDT [facility] RBC 4.94 4.50 - 6.10 x10'6/uL 07/17/2020 9:47 AM CDT [facility] HGB 15.1 13.0 - 18.0 G/DL 07/17/2020 9:47 AM CDT [facility] HCT 44.1 37.0 - 52.0 % 07/17/2020 9:47 AM CDT [facility] MCV 89.3 78.0 - 100.0 FL 07/17/2020 9:47 AM CDT [facility] MCH 30.6 27.0 - 31.0 PG 07/17/2020 9:47 AM CDT [facility] MCHC 34.2 33.0 - 36.0 G/DL 07/17/2020 9:47 AM CDT [facility] RDW 11.8 11.5 - 14.5 % 07/17/2020 9:47 AM CDT [facility] PLT 273 150 - 350 x10'3/uL 07/17/2020 9:47 AM CDT [facility] MPV 8.8 7.4 - 10.4 FL 07/17/2020 9:47 AM CDT [facility] DIFFERENTIAL COMMENT NORMAL REFERENCE RANGE NOT ESTABLISHED FOR THE PROPORTIONAL LEUKOCYTE DIFFERENTIAL. 07/17/2020 9:47 AM CDT [facility] SEG NEUTROPHILS 65.7 % 0 9:47 AM CDT [facility] LYMPHOCYTES 28.3 % 07/17/2020 9:47 AM CDT [facility] MONOCYTES 4.2 % 07/17/2020 9:47 AM CDT [facility] EOSINOPHILS 1.3 % 07/17/2020 9:47 AM CDT [facility] BASOPHILS 0.3 % 07/17/2020 9:47 AM CDT [facility] IMMATURE GRANS % 0.2 % 07/17/20 20 9:47 AM CDT [facility] NRBC 0.0 % 07/17/2020 9:47 AM CDT [facility] ABS. NEUTROPHILS 6.09 1.60 - 8.30 x10'3/uL 07/17/2020 9:47 AM CDT [facility] ABS. LYMPHOCYTES 2.63 0.80 - 4.70 x10'3/uL 07/17/2020 9:47 AM CDT [facility] ABS. MONOCYTES 0.39 0.00 - 1.50 x10'3/uL 07/17/2020 9:47 AM CDT [facility] ABS. EOSINOPHILS 0.12 0.00 - 0.40 x10'3/uL 07/17/2020 9:47 AM CDT [facility] ABS. BASOPHILS 0.03 0.00 - 0.20 x10'3/uL 07/17/2020 9:47 AM CDT [facility] ABS. IMMATURE GRANULOCYTES 0.02 0.00 - 0.03 x10'3/uL 07/17/2020 9:47 AM CDT [facility] ABS. NUCLEATED RBC'S 0.00 0.00 x10'3/uL 07/17/2020 9:47 AM CDT [facility] 07/17/2020 9:42 AM CDT Jeremias Mckeon MD LABORATORY Final Result [facility] [address] [place] [address], documented in this encounter Visit Diagnoses Diagnosis Tick bite- Primary Other, multiple, and unspecified sites, insect bite, nonvenomous, without mention of infection Rash Rash and other nonspecific skin eruption documented in this encounter Care Teams Iron Installer Relationship Specialty Start Date End Date None, Provider, PCP - General 07/17/20 documented as of this encounter
--- OUTSIDE RECORDS SUMMARY | 2024-11-28 11:39 | XMS_ITS | Encounter Summary ---
Author Organization [facility] [place] Address [facility]6 [facility]. 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
--- OUTSIDE RECORDS SUMMARY | 2024-11-28 11:39 | XMS_ITS | Encounter Summary ---
Author Organization [facility] Address [facility]6 [facility]. [place], [place] [address] [place] [address] Care Team Providers Care Loss Prevention Analyst Name Role Phone Unavailable Primary Care Provider Unavailabl e Encounter Details Date Type Department Care Team (Late st Contact Info) Description 11/21/1998 Abstract [facility] [address] [place] [address] , Generic Conversion, Social History Tobacco Use Types Packs/Day Years Used Date Smoking Tobacco: Never Assessed Sex and Gender Information Value Date Recorded Sex Assigned at Not on file Legal Sex Male 10:11 PM MSWS Gender Identity Not on file Sexual Orientation Not on file documented as of this encounter Plan of Treatment Not on file documented as of this encounter Visit Diagnoses Not on filedocumented in this encounter
--- OUTSIDE RECORDS SUMMARY | 2024-11-28 11:39 | XMS_ITS | Encounter Summary ---
Author Organization [facility] [place] [facility] Address [facility] [place] [address] [place] [address] Care Team Providers Care Packer Operator Automatic Name Role Phone Unavailable Primary Care Provider Unavailabl e Encounter Details Date Type Department Care Team (Late st Contact Info) Description 04/04/[address] 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
--- OUTSIDE RECORDS SUMMARY | 2024-11-28 11:39 | XMS_ITS | Encounter Summary ---
Author Organization [facility] Address [facility]6 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
--- OUTSIDE RECORDS SUMMARY | 2024-11-28 11:39 | XMS_ITS | Encounter Summary ---
Author Organization [facility] Address [facility]6 [facility]. 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
--- OUTSIDE RECORDS SUMMARY | 2024-11-28 11:39 | XMS_ITS | Clinical Summary ---
Author Organization [facility] Address [address] [place] [address]. 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 Gender Identity Not on file Sexual Orientation Not on file Last Filed Vital Signs Vital Sign Reading Time Taken Comments Blood Pressure 128/88 2014 9:44 AM RAILROAD CAR REPAIR SUPERVISOR Pulse 76 2014 9:44 AM RAILROAD CAR REPAIR SUPERVISOR Temperature - - Respiratory Rate - - Oxygen Saturation - - Inhaled Oxygen Concentration - - Weight 114.3 kg (252 lb) 2014 9:44 AM RAILROAD CAR REPAIR SUPERVISOR Height 182.9 cm (6') 2014 9:44 AM RAILROAD CAR REPAIR SUPERVISOR Body Mass Index 34.18 2014 9:44 AM RAILROAD CAR REPAIR SUPERVISOR Plan of Treatment Health Maintenance Due Date Last Done Comments Annual Physical 1985 Hepatitis C 01/24/2000 DTaP, Tdap and Td Vaccines (1 - Tdap) 2001 09/03/1987, 08/24/1983, 1982, Additional history exists Hepatitis B Vaccines (1 of 3 - 19+ 3-dose series) 2001 COVID-19 Vaccine ( - 2023- season) 2024 Influenza Adult (#1) 2024 HPV Vaccines Aged Out No longer eligi ble based on patient's age to complete this topic Meningococcal Vaccine Aged Out No patt neptali eligible based on patient's age to complete this topic Pneumococcal Vaccine: Pediatrics (0 to 5 Years) and At-Risk Patients (6 to 64 Years) Aged Out No longer eligible based on patient's age to complete this topic RSV Immunizations Under 20 Months Aged Out No longer eligible based on patient's age to complete this topic Care Teams Newspaper Inserter Relationship Specialty Start Date End Date None, Provider, PCP - General 07/17/20
--- OUTSIDE RECORDS SUMMARY | 2024-11-28 13:50 | XMS_ITS | Clinical Summary ---
Author Organization [facility] Address [address] [place] [address]. 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 DEVELOPMENT FACILITATOR Gender Identity Not on file Sexual Orientation Not on file Last Filed Vital Signs Vital Sign Reading Time Taken Comments Blood Pressure 128/88 2014 9:44 AM CAREER DEVELOPMENT FACILITATOR Pulse 76 2014 9:44 AM CAREER DEVELOPMENT FACILITATOR Temperature - - Respiratory Rate - - Oxygen Saturation - - Inhaled Oxygen Concentration - - Weight 114.3 kg (252 lb) 2014 9:44 AM CAREER DEVELOPMENT FACILITATOR Height 182.9 cm (6') 2014 9:44 AM CAREER DEVELOPMENT FACILITATOR Body Mass Index 34.18 2014 9:44 AM CAREER DEVELOPMENT FACILITATOR Plan of Treatment Health Maintenance Due Date [...] age to complete this topic Care Teams Odd Bundle Worker Relationship Specialty Start Date End Date None, Provider, PCP - General 07/17/20
--- OUTSIDE RECORDS SUMMARY | 2024-11-28 13:50 | XMS_ITS | Encounter Summary ---
Author Organization [facility] Address [facility] [place] [address] [place] [address] Care Team Providers Care Coat Presser Name Role Phone None, Provider Primary Care Provider Unavaila ble Encounter Details Date Type Department Care Team (Late st Contact Info) Description 07/17/2020 Orders Only [facility] [address] [place] [address] Jeremias Mckeon MD [address] [place] [phone] Social History Tobacco Use Types Packs/Day Years Used Date Smoking Tobacco: Never Assessed Sex and Gender Information Value Date Recorded Sex Assigned at Not on file Legal Sex Male 10:11 PM TEST SKEIN WINDER Gender Identity Not on file Sexual Orientation [...] TEST (07/17/2020 9:42 AM CDT) TEST NAME: [id number] RICKETTSIA AB PANEL WITH REFLEX TO TITERS 07/17/2020 9:45 AM CDT [facility] SPECIMEN TYPE SERUM 07/17/2020 9:45 AM CDT [facility] TEST RESULT: Flexitest 1 07/21/2020 2:37 PM CDT [employer] PATTIE LANGFORD Comment: Flexitest 1 RMSF IgG [...] Not indicated Test Performed by Govind Arnett, [employer] Pattie [facility], [address] [place] [address] Bobby Rawls M.D., Ph.D., Director of Laboratories , [facility] [id number] 07/17/2020 9:42 AM CDT Jeremias Mckeon MD LABORATORY Final Result Performing Organization Address City/State/[facility] Co de Phone Number [employer] [facility] [address] [place] [phone], [facility] [address] [place] [address], * LYME DISEASE ANTIBODY (07/17/2020 9:42 AM CDT) LYME IGG/IGM <0.90 <0.90 Index 07/20/2020 4:26 PM CDT [employer] KELVIN NIEVES Comment: Reference ranges: Index ? [...] ordered. COMMENT REPORT 07/20/2020 4:26 PM CDT [employer] KELVIN NIEVES Comment: Not indicated Test Performed by Govind Arnett, [employer] [facility] [place], [address] [place] [address] Bobby Rawls M.D., Ph.D., Director of Laboratories , [facility] [id number] 07/17/2020 9:42 AM CDT Jeremias Mckeon MD LABORATORY Final Result [employer] ROBBINGOVIND [address] [place] [phone], * CBC W/DIFF AUTOMATED (07/17/2020 9:42 AM CDT) WBC 9.3 4.5 - 10.8 x10'3/uL 07/17/2020 9:47 AM CDT [facility] RBC 4.94 4.50 - 6.10 x10'6/uL 07/17/2020 9:47 AM CDT [facility] HGB 15.1 13.0 - 18.0 G/DL 07/17/2020 9:47 AM CDT [facility] HCT 44.1 37.0 - 52.0 % 07/17/2020 9:47 AM CDT [facility] MCV 89.3 78.0 - 100.0 FL 07/17/2020 9:47 AM CDT [facility] MCH 30.6 27.0 - 31.0 PG 07/17/2020 9:47 AM CDT [facility] MCHC 34.2 33.0 - 36.0 G/DL 07/17/2020 9:47 AM CDT [facility] RDW 11.8 11.5 - 14.5 % 07/17/2020 9:47 AM CDT [facility] PLT 273 150 - 350 x10'3/uL 07/17/2020 9:47 AM CDT [facility] MPV 8.8 7.4 - 10.4 FL 07/17/2020 9:47 AM CDT [facility] DIFFERENTIAL COMMENT NORMAL REFERENCE RANGE NOT ESTABLISHED FOR THE PROPORTIONAL LEUKOCYTE DIFFERENTIAL. 07/17/2020 9:47 AM CDT [facility] SEG NEUTROPHILS 65.7 % 0 9:47 AM CDT [facility] LYMPHOCYTES 28.3 % 07/17/2020 9:47 AM CDT [facility] MONOCYTES 4.2 % 07/17/2020 9:47 AM CDT [facility] EOSINOPHILS 1.3 % 07/17/2020 9:47 AM CDT [facility] BASOPHILS 0.3 % 07/17/2020 9:47 AM CDT [facility] IMMATURE GRANS % 0.2 % 07/17/20 20 9:47 AM CDT [facility] NRBC 0.0 % 07/17/2020 9:47 AM CDT [facility] ABS. NEUTROPHILS 6.09 1.60 - 8.30 x10'3/uL 07/17/2020 9:47 AM CDT [facility] ABS. LYMPHOCYTES 2.63 0.80 - 4.70 x10'3/uL 07/17/2020 9:47 AM CDT [facility] ABS. MONOCYTES 0.39 0.00 - 1.50 x10'3/uL 07/17/2020 9:47 AM CDT [facility] ABS. EOSINOPHILS 0.12 0.00 - 0.40 x10'3/uL 07/17/2020 9:47 AM CDT [facility] ABS. BASOPHILS 0.03 0.00 - 0.20 x10'3/uL 07/17/2020 9:47 AM CDT [facility] ABS. IMMATURE GRANULOCYTES 0.02 0.00 - 0.03 x10'3/uL 07/17/2020 9:47 AM CDT [facility] ABS. NUCLEATED RBC'S 0.00 0.00 x10'3/uL 07/17/2020 9:47 AM CDT [facility] 07/17/2020 9:42 AM CDT Jeremias Mckeon MD LABORATORY Final Result [facility] [address] [place] [address], documented in this encounter Visit Diagnoses Diagnosis Tick bite- Primary Other, multiple, and unspecified sites, insect bite, nonvenomous, without mention of infection Rash Rash and other nonspecific skin eruption documented in this encounter Care Teams Coat Presser Relationship Specialty Start Date End Date None, Provider, PCP - General 07/17/20 documented as of this encounter
--- OUTSIDE RECORDS SUMMARY | 2024-11-28 13:51 | XMS_ITS | Encounter Summary ---
Author Organization [facility] Address [address] [facility] [place] [address] [place] [address] Care Team Providers Care Railway Signal Electrician Name Role Phone Unavailable Primary Care Provider Unavailabl e Encounter Details Date Type Department Care Team (Late st Contact Info) Description 04/22/2013 Abstract [facility] [address] [facility] [place] [place] [address] Toby Dobson MD [address] [place], [place] [id number] Social History Tobacco Use Types Packs/Day Years Used Date Smoking Tobacco: Never Assessed Sex and Gender Information Value Date Recorded Sex Assigned at Not on file Legal Sex Male 10:11 PM AUTHOR'S AGENT Gender Identity Not on file Sexual Orientation Not on file documented as of this encounter Plan of Treatment Not on file documented as of this encounter Visit Diagnoses Diagnosis Open wound of hand Open wound of hand except finger(s) alone, without mention of complication documented in this encounter
--- OUTSIDE RECORDS SUMMARY | 2024-11-28 13:51 | XMS_ITS | Encounter Summary ---
Author Organization [facility] Address [facility] [place], [place] [address] [place] [address] Care Team Providers Care Service Center Supervisor Name Role Phone Unavailable Primary Care Provider Unavailabl e Encounter Details Date Type Department Care Team (Late st Contact Info) Description 03/28/2001 Abstract [facility] [address] [place] [address] , Generic Conversion, Social History Tobacco Use Types Packs/Day Years Used Date Smoking Tobacco: Never Assessed Sex and Gender Information Value Date Recorded Sex Assigned at Not on file Legal Sex Male 10:11 PM BIOINFORMATICS TEAM MEMBER Gender Identity Not on file Sexual Orientation Not on file documented as of this encounter Plan of Treatment Not on file documented as of this encounter Visit Diagnoses Not on filedocumented in this encounter
--- OUTSIDE RECORDS SUMMARY | 2024-11-28 13:51 | XMS_ITS | Encounter Summary ---
Author Organization [facility] Address [address] [facility] [place] [address] [place] [address] Care Team Providers Care Chief Librarian Music Department Name Role Phone Unavailable Primary Care Provider Unavailabl e Encounter Details Date Type Department Care Team (Late st Contact Info) Description 2014 Abstract [facility] Priority Care - Kashif Sandra [address] [place] [address] Caro Rodriges MD [facility] [place] [address] Social History Tobacco Use Types Packs/Day Years Used Date Smoking Tobacco: Never Assessed Sex and Gender Information Value Date Recorded Sex Assigned at Not on file Legal Sex Male 10:11 PM POLITICAL SCIENCE RESEARCH ASSISTANT Gender Identity Not on file Sexual Orientation Not on file documented as of this encounter Last Filed Vital Signs Vital Sign Reading Time Taken Comments Blood Pressure 128/88 2014 9:44 AM POLITICAL SCIENCE RESEARCH ASSISTANT Pulse 76 2014 9:44 AM POLITICAL SCIENCE RESEARCH ASSISTANT Temperature - - Respiratory Rate - - Oxygen Saturation - - Inhaled Oxygen Concentration - - Weight 114.3 kg (252 lb) 2014 9:44 AM POLITICAL SCIENCE RESEARCH ASSISTANT Height 182.9 cm (6') 2014 9:44 AM POLITICAL SCIENCE RESEARCH ASSISTANT Body Mass Index 34.18 2014 9:44 AM POLITICAL SCIENCE RESEARCH ASSISTANT documented in this encounter Progress Notes * [...] Color YELLOW - Clarity CLEAR - Specific [place] 1.020 1.020-1.030 PH 7.0 5-7 Glucose. NEG [...] by : Caro Rodriges M.D.; 2014 10:26AM POLITICAL SCIENCE RESEARCH ASSISTANT (Author) TICAL SCIENCE RESEARCH ASSISTANT documented in this encounter Plan of Treatment Not on file documented as of this encounter Procedures Procedure Name Priority Date/Time Associated Diagnosis Comments URINALYSIS Routine 2014 9:38 AM POLITICAL SCIENCE RESEARCH ASSISTANT documented in this encounter Results * URINALYSIS (2014 9:38 AM POLITICAL SCIENCE RESEARCH ASSISTANT) COLOR (U) YELLOW [facility] T O EPIC [...] OUP TO EPIC CONVERSION 2014 9:38 AM POLITICAL SCIENCE RESEARCH ASSISTANT 2014 9:38 AM POLITICAL SCIENCE RESEARCH ASSISTANT Narrative [facility] TO EPIC CONVERSION - 2014 9:40 AM POLITICAL SCIENCE RESEARCH ASSISTANT Result Communication: No patient communication needed at this time Caro Rodriges MD URINE ORDERABLES Final Result [facility] TO EPIC CONVERSION documented in this encounter Visit Diagnoses Not on filedocumented in this encounter
--- OUTSIDE RECORDS SUMMARY | 2024-11-28 13:51 | XMS_ITS | Encounter Summary ---
Author Organization [facility] Address [facility] [facility]. [place], [place] [address] [place] [address] Care Team Providers Care Rotary Drier Name Role Phone None, Provider Primary Care Provider Unavaila ble Encounter Details Date Type Department Care Team (Latest Contact Info) Description 07/17/2020 Travel Social History Tobacco Use Types Packs/Day Years Used Date Smoking Tobacco: Never Assessed Sex and Gender Information Value Date Recorded Sex Assigned at Not on file Legal Sex Male 10:11 PM FRENCH TUTOR Gender Identity Not on file Sexual Orientation [...] on filedocumented in this encounter Care Teams Rotary Drier Relationship Specialty Start Date End Date None, ProviderMD PCP - General 07/17/20 documented as of this encounter
--- OUTSIDE RECORDS SUMMARY | 2024-11-28 13:51 | XMS_ITS | Encounter Summary ---
Author Organization [facility] Address [address] [facility] [address]. [place], [place] [address] [place] [address] Care Team Providers Care Echo Vascular Tech Name Role Phone Unavailable Primary Care Provider Unavailabl e Encounter Details Date Type Department Care Team (Late st Contact Info) Description 04/22/2013 Emergency [facility] Emergency [address] [place] [address] Social History Tobacco Use Types Packs/Day Years Used Date Smoking Tobacco: Never Assessed Sex and Gender Information Value Date Recorded Sex Assigned at Not on file Legal Sex Male 10:11 PM PLASTER PATTERN CASTER Gender Identity Not on file Sexual Orientation Not on file documented as of this encounter Plan of Treatment Not on file documented as of this encounter Visit Diagnoses Diagnosis Open wound of finger with tendon involvement Open wound of finger(s) , with tendon involvement documented in this encounter
--- OUTSIDE RECORDS SUMMARY | 2024-11-28 13:51 | XMS_ITS | Encounter Summary ---
Author Organization [facility] Address [facility]. [place], [place] [address] [place] [address] Care Team Providers Care Joy Loading Machine Operator Name Role Phone Unavailable Primary Care Provider Unavailabl e Encounter Details Date Type Department Care Team (Late st Contact Info) Description 06/19/2005 Abstract [facility] [address] [place] [address] Social History Tobacco Use Types Packs/Day Years Used Date Smoking Tobacco: Never Assessed Sex and Gender Information Value Date Recorded Sex Assigned at Not on file Legal Sex Male 10:11 PM INFORMATION OPERATOR Gender Identity Not on file Sexual Orientation Not on file documented as of this encounter Plan of Treatment Not on file documented as of this encounter Visit Diagnoses Not on filedocumented in this encounter
--- OUTSIDE RECORDS SUMMARY | 2024-11-28 13:51 | XMS_ITS | Encounter Summary ---
Author Organization [facility] Address [facility] [place] [address] [place] [address] Care Team Providers Care Balance Truing Inspector Name Role Phone Unavailable Primary Care Provider Unavailabl e Encounter Details Date Type Department Care Team (Late st Contact Info) Description 09/22/[address] 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
--- OUTSIDE RECORDS SUMMARY | 2024-11-28 13:51 | XMS_ITS | Encounter Summary ---
Author Organization [facility] Address [facility] [place] [address] [place] [address] Care Team Providers Care Mason Apprentice Name Role Phone Unavailable Primary Care Provider Unavailabl e Encounter Details Date Type Department Care Team (Late st Contact Info) Description 04/04/[address] 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
--- OUTSIDE RECORDS SUMMARY | 2024-11-28 13:51 | XMS_ITS | Encounter Summary ---
Author Organization [facility] Address [address] [facility]. 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
--- OUTSIDE RECORDS SUMMARY | 2024-11-28 13:51 | XMS_ITS | Encounter Summary ---
Author Organization [facility] Address [facility] 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
--- OUTSIDE RECORDS SUMMARY | 2024-11-28 13:51 | XMS_ITS | Encounter Summary ---
Author Organization [facility] Address [facility] [facility] 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
--- OUTSIDE RECORDS SUMMARY | 2024-11-28 13:51 | XMS_ITS | Encounter Summary ---
Author Organization [facility] Address [facility]6 [facility]. [place], [place] [address] [place] [address] Care Team Providers Care Geriatric Physician Name Role Phone Unavailable Primary Care Provider Unavailabl e Encounter Details Date Type Department Care Team (Latest Contact Info) Description [address] 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
--- OUTSIDE RECORDS SUMMARY | 2024-11-28 13:51 | XMS_ITS | Encounter Summary ---
Author Organization [facility] Address [facility] [place] [address] [place] [address] Care Team Providers Care Form Layer Name Role Phone None, Provider Primary Care Provider Unavaila ble Encounter Details Date Type Department Care Team (Latest Contact Info) Description 07/17/2020 9:15 AM CDT - 07/17/2020 11:59 PM CDT Hospital Encounter [facility] [address] [facility] [address] [address] [place] [address] Jeremias Mckeon MD [address] [place] [address] [place] [phone] Discharge Disposition: Home or Self Care (Routine Discharge) Social History Tobacco Use Types Packs/Day Years Used Date Smoking Tobacco: Never Assessed Sex and Gender Information Value Date Recorded Sex Assigned at Not on file 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, [address] [place] [address] Bobby Rawls M.D., Ph.D., Director of Laboratories , [facility] [id number] 07/17/2020 9:42 AM CDT us Jeremias Mckeon MD LABORATORY Final Result [employer] , [facility] [place] [address], * LYME DISEASE ANTIBODY (07/17/2020 9:42 AM CDT) LYME IGG/IGM <0.90 <0.90 Index 07/20/2020 4:26 PM CDT [employer] KELVIN NIEVES Comment: Reference ranges: Index ? [...] Lyme disease test report issued by a [place] laboratory: Patients undergoing a Lyme disease test [...] ordered. COMMENT REPORT 07/20/2020 4:26 PM CDT [employer] KELVIN NIEVES Comment: Not indicated Test Performed by Isaiah Arnett, [facility] [place], [address] [place], [place] Bobby Rawls M.D., Ph.D., Director of Laboratories , [facility] [id number] 07/17/2020 9:42 AM CDT Jeremias Mckeon MD LABORATORY Final Result [employer] [facility] [employer] [address] [place] [address], [place] [phone] * CBC W/DIFF AUTOMATED (07/17/2020 9:42 AM CDT) WBC 9.3 4.5 - 10.8 x10'3/uL 07/17/2020 9:47 AM CDT [facility] RBC 4.94 4.50 - 6.10 x10'6/uL 07/17/2020 9:47 AM CDT [facility] HGB 15.1 13.0 - 18.0 G/DL 07/17/2020 9:47 AM CDT [facility] HCT 44.1 37.0 - 52.0 % 07/17/2020 9:47 AM CDT [facility] MCV 89.3 78.0 - 100.0 FL 07/17/2020 9:47 AM CDT [facility] MCH 30.6 27.0 - 31.0 PG 07/17/2020 9:47 AM CDT [facility] MCHC 34.2 33.0 - 36.0 G/DL 07/17/2020 9:47 AM CDT [facility] RDW 11.8 11.5 - 14.5 % 07/17/2020 9:47 AM CDT [facility] PLT 273 150 - 350 x10'3/uL 07/17/2020 9:47 AM CDT [facility] MPV 8.8 7.4 - 10.4 FL 07/17/2020 9:47 AM CDT [facility] DIFFERENTIAL COMMENT NORMAL REFERENCE RANGE NOT ESTABLISHED FOR THE PROPORTIONAL LEUKOCYTE DIFFERENTIAL. 07/17/2020 9:47 AM CDT [facility] SEG NEUTROPHILS 65.7 % 0 9:47 AM CDT [facility] LYMPHOCYTES 28.3 % 07/17/2020 9:47 AM CDT [facility] MONOCYTES 4.2 % 07/17/2020 9:47 AM CDT [facility] EOSINOPHILS 1.3 % 07/17/2020 9:47 AM CDT [facility] BASOPHILS 0.3 % 07/17/2020 9:47 AM CDT [facility] IMMATURE GRANS % 0.2 % 07/17/20 20 9:47 AM CDT [facility] NRBC 0.0 % 07/17/2020 9:47 AM CDT [facility] ABS. NEUTROPHILS 6.09 1.60 - 8.30 x10'3/uL 07/17/2020 9:47 AM CDT [facility] ABS. LYMPHOCYTES 2.63 0.80 - 4.70 x10'3/uL 07/17/2020 9:47 AM CDT [facility] ABS. MONOCYTES 0.39 0.00 - 1.50 x10'3/uL 07/17/2020 9:47 AM CDT [facility] ABS. EOSINOPHILS 0.12 0.00 - 0.40 x10'3/uL 07/17/2020 9:47 AM CDT [facility] ABS. BASOPHILS 0.03 0.00 - 0.20 x10'3/uL 07/17/2020 9:47 AM CDT [facility] ABS. IMMATURE GRANULOCYTES 0.02 0.00 - 0.03 x10'3/uL 07/17/2020 9:47 AM CDT [facility] ABS. NUCLEATED RBC'S 0.00 0.00 x10'3/uL 07/17/2020 9:47 AM CDT [facility] 07/17/2020 9:42 AM CDT Jeremias Mckeon MD LABORATORY Final Result [facility] [address] [place] [address], documented in this encounter Visit Diagnoses Diagnosis Tick bite Other, multiple, and unspecified sites, insect bite, nonvenomous, without mention of infection Rash Rash and other nonspecific skin eruption documented in this encounter Care Teams Form Layer Relationship Specialty Start Date End Date None, Provider, PCP - General 07/17/20 documented as of this encounter
--- OUTSIDE RECORDS SUMMARY | 2024-11-28 13:51 | XMS_ITS | Encounter Summary ---
Author Organization [facility] Address Counts include 234 beds at the [facility]. 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
== END 2024-11-21 16:10 | disposition home or self-care (01) ==
PROVIDERS: Emergency Provider Emergency Medicine
DX: M54.16 Radiculopathy, lumbar region (principal); F17.200 Nicotine dependence, unspecified, uncomplicated
CPT/HCPCS: 81003; 96372; 99284; J2360; J2919